=== PATIENT | female | born 1950 | race Two or more races ===

== ENCOUNTER 2021-01-03 10:34 | Emergency (ER) | payer MEDICARE ==
[~2021-01-03] VITALS: Ht 160 cm; Wt 85.8 kg
--- NOTE | 2021-01-03 11:05 | NUR ---
PT STATES HAS LEFT BACK PAIN AND ON GLUTEUS MAXIUMS THAT PT FELL ON SUNDAY, NECK HURTS ALSO BRUISES ON LEFT SIDE AND REAR.
--- NOTE | 2021-01-03 11:18 | NUR ---
PT WALKED TO RESTROOM, URINE SAMPLE COLLECTED IN CASE UA.
[2021-01-03] MEDS ORDERED: DIAZEPAM 5 MG TABLET ONE (12:57)
[2021-01-03] MEDS ORDERED: DIAZEPAM 5 MG TABLET PO ONE (13:00)
--- NOTE | 2021-01-03 13:17 | NUR ---
BREAK RN: PT IN X RAY
--- NOTE | 2021-01-03 13:31 | NUR ---
BREAK RN: PT BACK FROM X RAY, MEDICATED PER SEP, PT VERBALIZED NO OTHER NEEDS AT THIS TIME, CALL LIGHT IN PLACE
[2021-01-03 14:36] VITALS: BP 136/81
== END 2021-01-03 14:38 | disposition home or self-care (01) ==
LOC: ED 14:30
DX: S39.012A Strain of muscle, fascia and tendon of lower back, initial encounter (principal); S30.0XXA Contusion of lower back and pelvis, initial encounter; M51.36 Other intervertebral disc degeneration, lumbar region; M19.90 Unspecified osteoarthritis, unspecified site; Z90.49 Acquired absence of other specified parts of digestive tract; V79.50XA Passenger on bus injured in collision with unspecified motor vehicles in traffic accident, initial encounter; Y93.89 Activity, other specified; Y92.89 Other specified places as the place of occurrence of the external cause; Y99.8 Other external cause status
CPT/HCPCS: 72110; 99283